=== PATIENT | female | born 1935 | race Caucasian/White ===

== ENCOUNTER 2018-09-07 13:54 | Emergency (ER) | payer MEDICARE, OTHER ==
[~2018-09-07] VITALS: Ht 165.1 cm; Wt 65.0 kg
--- NOTE | 2018-09-07 14:57 | NUR ---
Labs drawn in lobby. Pt wheeled to ER room, pt ambulatory in room and changing into gown.
--- NOTE | 2018-09-07 15:04 | NUR ---
Adelita MACEDO, at bedside to evaluate pt.
[2018-09-07 15:08] LABS: BASOPHILS # (AUTO) 0.08 x10^3/uL (0-0.1); BASOPHILS % (AUTO) 1 % (0-1); EOSINOPHILS # (AUTO) 0.07 x10^3/uL (0-0.4); EOSINOPHILS % (AUTO) 1 % (1-7); LYMPHOCYTES # (AUTO) 1.08 x10^3/uL (1-3.4); LYMPHOCYTES % (AUTO) 8 % (22-44); MD NO; MEAN CORPUSCULAR HEMOGLOBIN 31.1 pg (27.0-34.8); MEAN CORPUSCULAR HGB CONC 34.3 g/dL (32.4-35.8); MEAN CORPUSCULAR VOLUME 90.6 fL (80-100); MEAN PLATELET VOLUME 8.9 fL (7.4-10.4); MONOCYTES # (AUTO) 0.41 x10^3/uL (0.2-0.8); MONOCYTES % (AUTO) 3 % (2-9); NEUTROPHILS # (AUTO) 11.46 x10^3/uL (1.8-6.8); NEUTROPHILS % (AUTO) 88 % (42-75); PLATELET COUNT 469 x10^3/uL (130-400); RED BLOOD COUNT 5.53 x10^6/uL (3.82-5.3); RED CELL DISTRIBUTION WIDTH 16.5 % (9.6-15.2)
[2018-09-07 15:17] LABS: ANION GAP 8 mmol/L (5-15); CALCIUM 9.5 mg/dL (8.5-10.1); CHLORIDE 96 mmol/L (98-107)
[2018-09-07 15:18] LABS: CREATININE 0.93 mg/dL (0.55-1.02)
--- NOTE | 2018-09-07 15:38 | NUR ---
Pt medicated per SEP. Pt's son, Chase, at bedside now. Pt remains on monitors, BP taking q 30 mins.
--- NOTE | 2018-09-07 16:19 | NUR ---
Pt resting on gurney, aware that we are attempting to bring her blood pressure down with medication.
--- NOTE | 2018-09-07 16:45 | NUR ---
Adelita MACEDO, at bedside to discuss ED findings and POC.
--- NOTE | 2018-09-07 17:12 | NUR ---
Dr. Aden at bedside to discuss ED findings and POC.
[2018-09-07 17:13] VITALS: BP 165/79
--- NOTE | 2018-09-07 17:49 | NUR ---
Patient/Caregiver given discharge instructions and they have confirmed that they understand the instructions. Patient ambulatory with steady gait.
== END 2018-09-07 17:51 | disposition home or self-care (01) ==
LOC: ED 17:10
DX: I10 Essential (primary) hypertension (principal); R51 Headache; Z87.891 Personal history of nicotine dependence
CPT/HCPCS: 36415; 70450; 80048; 82040; 85025; 93005; 99284

== ENCOUNTER 2018-09-22 15:09 | Inpatient (IN) | payer MEDICARE ==
[~2018-09-22] VITALS: Ht 165.1 cm; Wt 66.0 kg
--- NOTE | 2018-09-22 15:19 | NUR ---
PT BIB [facility]. PT WAS FOUND ON THE GROUND AT HOME. BELIEF IS THAT PT STAYED THE NIGHT ON THE FLOOR. PT HAS REDNESS TO RIGHT SIDE OF BODY: BREAST, CENTER OF CHEST, AND RIGHT KNEE. SON REPORTS THAT PT IS MORE SLOW TO ANSWER QUESTIONS. PT IS NORMALLY AMBULATORY, BUT NOW SHUFFELS WHEN SHE WALKS. NEGATIVE STROKE SCALE. LAST SEEN NORMAL YESTERDAY AT 10 AM. FS 73. BP 187/81, HR 70, O2 SAT 95% RA. PT IS ALERT AND ORIENTED TO NORM. MD AT BEDSIDE.
[2018-09-22 15:54] LABS: MICROSCOPIC INDICATED
[2018-09-22 16:05] LABS: MD YES; MEAN CORPUSCULAR HEMOGLOBIN 31.1 pg (27.0-34.8); MEAN CORPUSCULAR HGB CONC 34.2 g/dL (32.4-35.8); MEAN CORPUSCULAR VOLUME 90.8 fL (80-100); MEAN PLATELET VOLUME 8.9 fL (7.4-10.4); PLATELET COUNT 581 x10^3/uL (130-400); RED BLOOD COUNT 5.98 x10^6/uL (3.82-5.3); RED CELL DISTRIBUTION WIDTH 15.5 % (9.6-15.2)
[2018-09-22 16:06] LABS: CULTURE INDICATED? NO
[2018-09-22 16:16] LABS: ALANINE AMINOTRANSFERASE 45 U/L (12-78); ALBUMIN 3.8 g/dL (3.4-5.0); ANION GAP 11 mmol/L (5-15); CALCIUM 9.8 mg/dL (8.5-10.1); CHLORIDE 79 mmol/L (98-107); CREATININE 0.93 mg/dL (0.55-1.02)
[2018-09-22 16:21] LABS: ALKALINE PHOSPHATASE 101 U/L (45-117); BILIRUBIN,TOTAL 1.5 mg/dL (0.2-1.0); TROPONIN I 0.092 ng/mL (0.000-0.045)
[2018-09-22 16:31] LABS: BAND#(MANUAL) 0.78 x10^3/uL; BANDS%(MANUAL) 3 % (0-7); LYMPH#(MANUAL) 0.78 x10^3/uL (1-3.4); LYMPHS% (MANUAL) 3 % (22-44); MONOS#(MANUAL) 2.34 x10^3/uL (0.3-2.7); MONOS% (MANUAL) 9 % (2-9); SEGS% (MANUAL) 85 % (42-75)
[2018-09-22 16:32] LABS: <PLATELET ESTIMATE> INCREASED; <PLT MORPHOLOGY> NORMAL PLT MORPH; <RBC MORPHOLOGY> NORMAL
[2018-09-22 16:33] LABS: PMNS WITH VACUOLES 1+
--- NOTE | 2018-09-22 16:42 | NUR ---
PT IS RESTING IN BED, TALKING AND SMILING, RESPIRATIONS EQUAL AND NON LABORED. NAD. PT IS CONNECTED TO THE MONITOR. CALL LIGHT WITHIN REACH. SON AT BEDSIDE.
--- NOTE | 2018-09-22 16:53 | NUR ---
INFORMED MD THAT PTS SODIUM WAS 114. VERBAL ORDER 1L NS @ 100 HR. NS HUNG AND RUNNING. MD AT BEDSIDE.
[2018-09-22] MEDS ORDERED: POTASSIUM CHLORIDE 20 MEQ in SODIUM CHLORIDE 0.9% 1,000 ML IV ONE (17:18)
[2018-09-22] MEDS ORDERED: LISI1TAB5 PO (17:19)
[2018-09-22] MEDS ORDERED: BISACODYL 10 MG SUPP PR PRN (17:30)
[2018-09-22] MEDS ORDERED: ONDANSETRON ODT 4 MG PO PRN (17:30)
[2018-09-22] MEDS ORDERED: ONDANSETRON 2MG/ML, 2ML IVPush PRN (17:30)
[2018-09-22] MEDS ORDERED: ACETAMINOPHEN 325 MG TABLET PO PRN (17:30)
[2018-09-22] MEDS ORDERED: POLYETHYLENE GLYCOL 17 GM PACKET PO PRN (17:30)
[2018-09-22] MEDS ORDERED: SODIUM CHLORIDE FLUSH 10ML SYR IVF PRN (17:30)
[2018-09-22] MEDS ORDERED: NS + 20MEQ KCL 1,000 ML IV ONE (17:31)
[2018-09-22] MEDS: SODIUM CHLORIDE 0.9% 1,000 ML IV SCH (17:36)
--- NOTE | 2018-09-22 18:03 | NUR ---
PT TAKEN TO CT.
--- NOTE | 2018-09-22 18:48 | NUR ---
REPORT GIVEN TO YAS POTTER.
[2018-09-22 20:17] VITALS: BP 161/69
[2018-09-22 20:31] VITALS: BP 161/69
[2018-09-23] MEDS: hydrALAzine 20 MG/ML, 1ML IVPush PRN ×2 (02:36→23:21)
[2018-09-23] MEDS: SODIUM CHLORIDE 0.9% 1,000 ML IV SCH ×3 (05:05→23:25)
[2018-09-23 05:07] LABS: MEAN CORPUSCULAR HEMOGLOBIN 31.1 pg (27.0-34.8); MEAN CORPUSCULAR VOLUME 91.4 fL (80-100); MEAN PLATELET VOLUME 9.2 fL (7.4-10.4); PLATELET COUNT 482 x10^3/uL (130-400); RED BLOOD COUNT 5.82 x10^6/uL (3.82-5.3); RED CELL DISTRIBUTION WIDTH 15.8 % (9.6-15.2)
[2018-09-23 05:10] LABS: ALBUMIN 3.5 g/dL (3.4-5.0); ANION GAP 10 mmol/L (5-15); CALCIUM 9.5 mg/dL (8.5-10.1); CHLORIDE 85 mmol/L (98-107)
[2018-09-23 05:16] LABS: ALANINE AMINOTRANSFERASE 57 U/L (12-78); ALKALINE PHOSPHATASE 92 U/L (45-117); BILIRUBIN,TOTAL 1.9 mg/dL (0.2-1.0); CREATININE 0.74 mg/dL (0.55-1.02); TOTAL PROTEIN 6.5 g/dL (6.4-8.2)
[2018-09-23 05:22] LABS: TROPONIN I 0.069 ng/mL (0.000-0.045)
[2018-09-23 05:47] LABS: MD YES
[2018-09-23 05:48] LABS: BAND#(MANUAL) 0.66 x10^3/uL; BANDS%(MANUAL) 4 % (0-7); LYMPHS% (MANUAL) 3 % (22-44); MONOS% (MANUAL) 3 % (2-9); SEG#(MANUAL) 14.94 x10^3/uL (1.8-6.8); SEGS% (MANUAL) 90 % (42-75)
[2018-09-23 05:51] LABS: <PLATELET ESTIMATE> INCREASED; ANISOCYTOSIS 1+; LARGE PLATELETS 1+
[2018-09-23] MEDS ORDERED: POTASSIUM CHLORIDE 20 MEQ TAB.ER.PRT PO ONE (07:30)
[2018-09-23] MEDS: LISINOPRIL 20 MG TABLET PO SCH (10:50)
[2018-09-23] MEDS: SENNA/DOCUSATE TABLET PO SCH (13:21)
[2018-09-23] MEDS ORDERED: SODIUM CHLORIDE 0.9% 1,000 ML IV SCH (17:21)
[2018-09-24] MEDS: hydrALAzine 20 MG/ML, 1ML IVPush PRN ×2 (05:31→12:41)
[2018-09-24 06:32] LABS: MEAN CORPUSCULAR HEMOGLOBIN 31.5 pg (27.0-34.8); MEAN CORPUSCULAR HGB CONC 34.2 g/dL (32.4-35.8); MEAN CORPUSCULAR VOLUME 92.1 fL (80-100); PLATELET COUNT 492 x10^3/uL (130-400); RED BLOOD COUNT 5.23 x10^6/uL (3.82-5.3); RED CELL DISTRIBUTION WIDTH 16.4 % (9.6-15.2)
[2018-09-24 06:49] LABS: MD YES
[2018-09-24 06:51] LABS: LYMPH#(MANUAL) 0.64 x10^3/uL (1-3.4); LYMPHS% (MANUAL) 3 % (22-44); MONOS#(MANUAL) 0.85 x10^3/uL (0.3-2.7); MONOS% (MANUAL) 4 % (2-9); SEG#(MANUAL) 19.81 x10^3/uL (1.8-6.8); SEGS% (MANUAL) 93 % (42-75)
[2018-09-24 06:53] LABS: <PLATELET ESTIMATE> INCREASED; <PLT MORPHOLOGY> NORMAL PLT MORPH; ANISOCYTOSIS 1+
[2018-09-24 07:00] LABS: CREATINE KINASE, TOTAL 1545 U/L (26-192)
[2018-09-24] MEDS ORDERED: PROPOFOL 10 MG/ML, 100ML IV ONE (08:00)
[2018-09-24] MEDS ORDERED: ETOMIDATE 20 MG/10 ML ONE (08:00)
[2018-09-24] MEDS ORDERED: ROCURONIUM 10 MG/ML,10ML ONE (08:00)
[2018-09-24] MEDS: SENNA/DOCUSATE TABLET PO SCH (09:11)
[2018-09-24] MEDS: LISINOPRIL 20 MG TABLET PO SCH (09:11)
[2018-09-24] MEDS: SODIUM CHLORIDE 0.9% 1,000 ML IV SCH ×2 (09:12→18:37)
[2018-09-24] MEDS: AMPICILLIN/SULBACTAM 3 GM in SODIUM CHLORIDE 0.9% 100 ML IV SCH ×3 (09:15→19:50)
[2018-09-24 12:30] VITALS: BP 176/73
[2018-09-24 13:12] VITALS: BP 152/62
[2018-09-24] MEDS: CARVEDILOL 3.125 MG TABLET PO SCH (18:17)
[2018-09-24] MEDS ORDERED: HALOPERIDOL 5 MG/ML IM PRN (20:30)
[2018-09-25] MEDS: AMPICILLIN/SULBACTAM 3 GM in SODIUM CHLORIDE 0.9% 100 ML IV SCH ×4 (01:15→21:08)
[2018-09-25 03:00] VITALS: BP 183/79
[2018-09-25] MEDS: SODIUM CHLORIDE 0.9% 1,000 ML IV SCH ×2 (04:24→12:36)
[2018-09-25 04:36] VITALS: BP 177/79
[2018-09-25] MEDS: hydrALAzine 20 MG/ML, 1ML IVPush PRN ×3 (04:38→22:19)
[2018-09-25] MEDS: CARVEDILOL 3.125 MG TABLET PO SCH ×2 (06:00→18:14)
[2018-09-25] MEDS: LISINOPRIL 20 MG TABLET PO SCH (09:00)
[2018-09-25] MEDS: SENNA/DOCUSATE TABLET PO SCH (09:00)
[2018-09-25 11:32] LABS: MEAN CORPUSCULAR HEMOGLOBIN 30.6 pg (27.0-34.8); MEAN CORPUSCULAR HGB CONC 33.5 g/dL (32.4-35.8); MEAN CORPUSCULAR VOLUME 91.3 fL (80-100); MEAN PLATELET VOLUME 8.6 fL (7.4-10.4); PLATELET COUNT 471 x10^3/uL (130-400); RED BLOOD COUNT 5.54 x10^6/uL (3.82-5.3); RED CELL DISTRIBUTION WIDTH 16.3 % (9.6-15.2)
[2018-09-25 11:43] LABS: ANION GAP 9 mmol/L (5-15); CALCIUM 8.9 mg/dL (8.5-10.1); CHLORIDE 101 mmol/L (98-107)
[2018-09-25 11:45] LABS: BASOPHILS # (AUTO) 0.35 x10^3/uL (0-0.1); BASOPHILS % (AUTO) 2 % (0-1); EOSINOPHILS # (AUTO) 0.28 x10^3/uL (0-0.4); EOSINOPHILS % (AUTO) 2 % (1-7); LYMPHOCYTES # (AUTO) 0.55 x10^3/uL (1-3.4); LYMPHOCYTES % (AUTO) 4 % (22-44); MD SCAN; MONOCYTES # (AUTO) 1.01 x10^3/uL (0.2-0.8); MONOCYTES % (AUTO) 7 % (2-9); NEUTROPHILS # (AUTO) 12.32 x10^3/uL (1.8-6.8); NEUTROPHILS % (AUTO) 85 % (42-75)
[2018-09-25] MEDS ORDERED: GADOBUTROL 7.5 MMOL/7.5 ML PFS ONE (12:07)
[2018-09-25] MEDS ORDERED: FENTANYL PF 100 MCG/2ML ONE (13:38)
[2018-09-25] MEDS ORDERED: FENTANYL PF 100 MCG/2ML IVPush ONE (14:00)
[2018-09-25] MEDS ORDERED: SODIUM CHLORIDE 3% 500 ML IV PRN (14:00)
[2018-09-25] MEDS: PROPOFOL 100 ML IV PRN (14:22)
[2018-09-25] MEDS ORDERED: PHARMACY MAY ADJ FOR RENAL FX MC SCH (14:30)
[2018-09-25] MEDS ORDERED: DEXTROSE 50%, 50ML SYRINGE IVPush PRN (14:30)
[2018-09-25] MEDS ORDERED: LIDOCAINE-MPF 1%, 2ML ENDO PRN (14:30)
[2018-09-25] MEDS ORDERED: SENNA/DOCUSATE TABLET NG PRN (14:30)
[2018-09-25] MEDS ORDERED: DEXTROSE 4 GM TAB.CHEW PO PRN (14:30)
[2018-09-25] MEDS ORDERED: FENTANYL PF 100 MCG/2ML IVPush PRN (14:30)
[2018-09-25] MEDS ORDERED: SENNOSIDES 8.8 MG/5 ML ORAL SOL NG PRN (14:30)
[2018-09-25] MEDS: ALBUTEROL/IPRATROPIUM 2.5MG/0.5MG, 3 ML INLINE SCH ×2 (14:30→18:43)
[2018-09-25] MEDS ORDERED: LACTULOSE 20 GM/30 ML UDC NG PRN (14:30)
[2018-09-25] MEDS ORDERED: BISACODYL 10 MG SUPP PR PRN (14:30)
[2018-09-25] MEDS ORDERED: GLUCAGON 1 MG IM PRN (14:30)
[2018-09-25 14:59] LABS: TROPONIN I 0.039 ng/mL (0.000-0.045)
[2018-09-25 15:22] LABS: MICROSCOPIC INDICATED
[2018-09-25 15:34] LABS: CULTURE INDICATED? YES
[2018-09-25] MEDS: SODIUM CHLORIDE 3% 500 ML IV PRN (15:44)
[2018-09-25] MEDS ORDERED: INSULIN LISPRO 100 UNITS/ML, PEN SQ-INSULIN SCH (16:00)
[2018-09-25] MEDS: INSULIN LISPRO 100 UNITS/ML, PEN SQ-INSULIN SCH (21:10)
[2018-09-25] MEDS: SODIUM CHLORIDE FLUSH 10ML SYR IVF SCH (21:10)
[2018-09-25] MEDS ORDERED: ALBUTEROL/IPRATROPIUM 2.5MG/0.5MG, 3 ML INLINE SCH (23:00)
[2018-09-26] MEDS: INSULIN LISPRO 100 UNITS/ML, PEN SQ-INSULIN SCH ×2 (04:00→10:00)
[2018-09-26] MEDS: AMPICILLIN/SULBACTAM 3 GM in SODIUM CHLORIDE 0.9% 100 ML IV SCH ×3 (04:10→15:43)
[2018-09-26] MEDS: PROPOFOL 100 ML IV PRN (04:12)
[2018-09-26 04:17] LABS: BASOPHILS # (AUTO) 0.17 x10^3/uL (0-0.1); BASOPHILS % (AUTO) 1 % (0-1); EOSINOPHILS # (AUTO) 0.32 x10^3/uL (0-0.4); EOSINOPHILS % (AUTO) 3 % (1-7); LYMPHOCYTES # (AUTO) 0.85 x10^3/uL (1-3.4); LYMPHOCYTES % (AUTO) 7 % (22-44); MD NO; MEAN CORPUSCULAR HEMOGLOBIN 31.1 pg (27.0-34.8); MEAN CORPUSCULAR HGB CONC 33.7 g/dL (32.4-35.8); MEAN CORPUSCULAR VOLUME 92.3 fL (80-100); MEAN PLATELET VOLUME 8.4 fL (7.4-10.4); MONOCYTES # (AUTO) 0.67 x10^3/uL (0.2-0.8); MONOCYTES % (AUTO) 5 % (2-9); NEUTROPHILS # (AUTO) 10.83 x10^3/uL (1.8-6.8); NEUTROPHILS % (AUTO) 84 % (42-75); PLATELET COUNT 462 x10^3/uL (130-400); RED BLOOD COUNT 4.89 x10^6/uL (3.82-5.3); RED CELL DISTRIBUTION WIDTH 16.6 % (9.6-15.2)
[2018-09-26 04:24] LABS: ANION GAP 7 mmol/L (5-15); CALCIUM 8.7 mg/dL (8.5-10.1); CHLORIDE 109 mmol/L (98-107); CREATININE 0.53 mg/dL (0.55-1.02)
[2018-09-26] MEDS ORDERED: POTASSIUM CHLORIDE 40 MEQ in SODIUM CHLORIDE 0.9% 500 ML IV ONE (06:00)
[2018-09-26] MEDS: CARVEDILOL 3.125 MG TABLET PO SCH (08:55)
[2018-09-26] MEDS: LISINOPRIL 20 MG TABLET PO SCH (08:55)
[2018-09-26] MEDS: SENNA/DOCUSATE TABLET PO SCH (08:55)
[2018-09-26] MEDS: SODIUM CHLORIDE FLUSH 10ML SYR IVF SCH (08:55)
[2018-09-26] MEDS: SODIUM CHLORIDE 3% 500 ML IV PRN (11:10)
[2018-09-26] MEDS ORDERED: GADOBUTROL 7.5 MMOL/7.5 ML PFS ONE (12:51)
[2018-09-26] MEDS ORDERED: MORPHINE SULFATE 4 MG/ML, 1ML ONE (15:58)
[2018-09-26] MEDS ORDERED: LORazepam 2 MG/ML, 1ML ONE (15:59)
[2018-09-26] MEDS ORDERED: SCOPOLAMINE PATCH, 1.5MG PATCH.TD72 TD ONE (16:11)
[2018-09-26] MEDS ORDERED: LORazepam 2 MG/ML, 1ML IVPush ONE (16:30)
[2018-09-26] MEDS ORDERED: SCOPOLAMINE PATCH, 1.5MG PATCH.TD72 TD SCH (16:30)
[2018-09-26] MEDS ORDERED: ATROPINE OPHTH SOLN 1%, 2ML BC PRN (16:30)
[2018-09-26] MEDS ORDERED: MORPHINE SULFATE 4 MG/ML, 1ML IVPush PRN ×2 (16:30)
[2018-09-26] MEDS ORDERED: LORazepam 2 MG/ML, 1ML IVPush PRN (16:30)
[2018-09-26] MEDS ORDERED: MORPHINE SULFATE 4 MG/ML, 1ML IVPush ONE (16:30)
== END 2018-09-26 16:52 | disposition expired | DRG 64 ==
LOC: ED 17:17 → EDIP 17:18 → ED 17:20 → CCU 19:07 → 3NW 09-24 13:44 → CCU 09-25 10:45
PROVIDERS: ADMIT Internal Medicine; ATTEND Internal Medicine
PROC: 0T9B70Z Drainage of Bladder with Drainage Device, Via Natural or Artificial Opening (ICD-10-PCS; 2018-09-22)
PROC: 0BH17EZ Insertion of Endotracheal Airway into Trachea, Via Natural or Artificial Opening (ICD-10-PCS; principal; 2018-09-25)
PROC: 0T9B70Z Drainage of Bladder with Drainage Device, Via Natural or Artificial Opening (ICD-10-PCS; 2018-09-25)
PROC: 5A1945Z Respiratory Ventilation, 24-96 Consecutive Hours (ICD-10-PCS; 2018-09-25)
DX: I63.432 Cerebral infarction due to embolism of left posterior cerebral artery (principal); G93.41 Metabolic encephalopathy; J96.90 Respiratory failure, unspecified, unspecified whether with hypoxia or hypercapnia; E87.1 Hypo-osmolality and hyponatremia; M62.82 Rhabdomyolysis; Z99.11 Dependence on respirator [ventilator] status; Z51.5 Encounter for palliative care; I10 Essential (primary) hypertension; J40 Bronchitis, not specified as acute or chronic; Z66 Do not resuscitate; D72.829 Elevated white blood cell count, unspecified; H26.9 Unspecified cataract; R32 Unspecified urinary incontinence; Z87.891 Personal history of nicotine dependence
CPT/HCPCS: 36415; 36600; 70450; 70553; 71045; 72125; 80048; 80053; 81001; 82550; 82803; 82962; 83735; 84100; 84145; 84295; 84443; 84478; 84484; 85025; 87040; 87070; 87077; 87081; 87086; 87186; 87205; 93005; 93306; 94002; 94003; 94640; 95819; 96360; 99291; A9585; G0378; J0295; J2704; J3010; J3480; J7620; J0360; J1630; J2060; J7030; J7040